=== PATIENT | male | born 1990 | race Caucasian/White ===

== ENCOUNTER 2020-11-07 10:40 | Emergency (ER) | payer BC ==
[2020-11-07] MEDS ORDERED: Proparacaine 0.5% Ophth Soln 15 ML Bottle EYERT ONE (11:06)
[2020-11-07] MEDS ORDERED: Fluorescein 1 MG Ophth Strip EYERT ONE (11:06)
--- NOTE | 2020-11-07 11:38 | EDM.PDOC ---
ED HPI GENERAL MEDICAL PROBLEM - General Chief Complaint: ENT Problem Stated Complaint: R EYE REDNESS Time Seen by Provider: 11/07/20 11:33 - History of Present Illness INITIAL COMMENTS - FREE TEXT/NARRATIVE: 30-year-old male presents the emergency room with right eye discomfort and drainage. This started last evening the patient works in the [employer] but does not really recall getting anything in his eye yesterday he was in meetings all day. When he got home from the meetings last evening he noticed that he was having some irritation there at that time his noticed some purulent drainage in his eye was started to turn red. This morning when he awoke he had discomfort and irritation in the eye. He also did not have the sensation that his eye was completely glued shut but in order to open it he had to wipe it clear with a moist rag. His is gotten quite a bit of discharge out of the eye. No significant vision changes. Right Eye Pain Score (Numeric/FACES): 5 - Related Data Allergies Allergy/AdvReac Type Severity Reaction Status Date / Time No Known Allergies Allergy Verified 11/07/20 11:04 Home Meds: Home Meds Ciprofloxacin [Ciloxan 0.3% Ophth Soln] 2.5 ml .XX ASDIRECTED #1 ml 11/07/20 [Rx] Past Medical History - Past Health History Medical/Surgical History: Denies Medical/Surgical History Social & Family History - Tobacco Use Tobacco Use Status *Q: Never Tobacco User Second Hand Smoke Exposure: No - Caffeine Use Caffeine Use: Reports: Coffee, Energy Drinks, Soda - Recreational Drug Use Recreational Drug Use: No ED ROS GENERAL - Review of Systems Review Of Systems: See Below Constitutional: Reports: No Symptoms HEENT: Reports: Eye Pain Respiratory: Reports: No Symptoms Cardiovascular: Reports: No Symptoms GI/Abdominal: Reports: No Symptoms ED EXAM GENERAL W FULL EYE - Physical Exam Exam: See Below Exam Limited By: No Limitations General Appearance: Alert, No Apparent Distress Eye Exam: Right Eye: Conjunctival Injection, Corneal Abrasion (None seen with fluorescein and slit-lamp exam), Foreign Body ( none found), Left Eye: Normal Inspection, Bilateral Eye: EOMI, PERRL Eyelids: Right: Erythema Conjunctiva & Sclera: Right: Injected Cornea Exam: Right: Normal Appearance, Examined with Flourescein (No abnormalities the cornea appreciated) Extraocular Movements: Bilateral: Intact Pupils: Normal Accommodation Pupillary Reaction: Bilateral: Brisk Anterior Chamber: Right: Normal Appearance Posterior Chamber: Right: Normal Funduscopic Ears: Normal External Exam, Normal Canal, Hearing Grossly Normal, Normal TMs Nose: Normal Inspection, Normal Mucosa, No Blood Throat/Mouth: Normal Inspection, Normal Lips, Normal Teeth, Normal Gums, Normal Oropharynx, Normal Voice, No Airway Compromise Head: Atraumatic, Normocephalic Neck: Normal Inspection, Supple, Non-Tender, Full Range of Motion Respiratory/Chest: No Respiratory Distress, Lungs Clear, Normal Breath Sounds Cardiovascular: Regular Rate, Rhythm, No Edema, No Murmur Course - Vital Signs Last Recorded V/S: Last Vital Signs Temp 36.7 C 11/07/20 10:52 Pulse 66 11/07/20 10:52 Resp 20 11/07/20 10:52 BP 149/82 H 11/07/20 10:52 Pulse Ox 97 11/07/20 10:52 - Orders/Labs/Meds Meds: Medications Discontinued Medications Generic Name Dose Route Start Last Admin Trade Name Lenin PRN Reason Stop Dose Admin Fluorescein Sodium 1 mg 11/07/20 11:06 11/07/20 11:11 Fluorescein 1 Mg Ophth Strip EYERT 11/07/20 11:07 1 mg ONETIME ONE Administration Proparacaine HCl 1 ml 11/07/20 11:06 11/07/20 11:11 Proparacaine 0.5% Ophth Soln 15 Ml Bottle EYERT 11/07/20 11:07 1 ml ONETIME ONE Administration - Re-Assessments/Exams Free Text/Narrative Re-Assessment/Exam: 11/07/20 12:13 Exam is essentially unrevealing to the cause of his red eye other than he might have an early bacterial conjunctivitis going on we will put him on Cipro drops. Corneas carefully examined no dendritic changes. 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 Departure - Departure Time of Disposition: 12:14 Disposition: Home, Self-Care 01 Clinical Impression: Irritation of right eye, Acute conjunctivitis, right eye - Discharge Information Referrals: Brad Troncoso MD [Primary Care Provider] - Forms: ED Department Discharge Additional Instructions: Return to the emergency room with any questions problems or worsening symptoms. Follow-up with your eye doctor on Monday if not improving. You have been started on an eyedrop use 2 drops to the right eye 4 times a day for 7 days. Use warm moist compresses over your eye every couple hours while awake and upon awaking first thing in the morning. Gently brush any debris from around your eye off taking care not to get it back in your eye. Sepsis Event Note (ED) - Focused Exam Vital Signs: Vital Signs Temp Pulse Resp BP Pulse Ox 11/07/20 10:52 36.7 C 66 20 149/82 H 97
== END 2020-11-07 12:32 | disposition home or self-care (01) ==
LOC: JD.ED 10:40
DX: H10.31 Unspecified acute conjunctivitis, right eye (principal)
CPT/HCPCS: 99283

== ENCOUNTER 2021-03-19 23:19 | Emergency (ER) | payer BC | END 2021-03-20 01:00 | disposition home or self-care (01) | LOC: JD.ED 23:19 | DX: M25.531 Pain in right wrist (principal); E66.9 Obesity, unspecified; Z68.33 Body mass index [BMI] 33.0-33.9, adult | CPT/HCPCS: 73110-26-RT; 73110-RT; 99283; 99283-25 ==

== ENCOUNTER 2022-04-02 03:52 | Emergency (ER) | payer BC | END 2022-04-02 05:00 | disposition home or self-care (01) | LOC: JD.ED 03:52 | DX: S60.021A Contusion of right index finger without damage to nail, initial encounter (principal); E66.9 Obesity, unspecified; Z68.32 Body mass index [BMI] 32.0-32.9, adult; W06.XXXA Fall from bed, initial encounter | CPT/HCPCS: 73140-26-F6; 73140-F6; 99282; 99283 ==